=== PATIENT | female | born 1955 | race Caucasian/White ===

== ENCOUNTER 2023-07-20 08:02 | Day surgery (SDC) | payer OTHER ==
[2023-07-19 11:16] LABS: Absolute Basophils 0.1 K/uL (0-0.5); Absolute Eosinophils 0.3 K/uL (0-0.5); Absolute Lymphocytes (CBC) 3.4 K/uL (0.7-4.9); Absolute Monocytes 0.6 K/uL (0.1-1.3); Absolute Neutrophil 2.8 K/uL (1.8-8.0); Basophils % 1.3 % (0-1.3); Eosinophils % 4.8 % (0-4.4); Hematocrit 42.7 % (36.0-45.0); Lymphocytes % 46.6 % (15.3-44.8); MCH 28.3 pg (27.0-35.0); MCHC 32.8 g/dL (32.0-36.0); MCV 86.3 fL (80-100); MPV 9.2 fL (7.6-11.3); Monocytes % 8.6 % (3.3-12.3); Neutrophils % 38.7 % (41.7-73.7); Platelets 265 thou/uL (152-406); RBC Red Blood Cell Count 4.95 M/uL (3.86-4.86)
--- NOTE | 2023-07-19 11:16 | RAD REPORT ---
EXAM DESCRIPTION: RAD - Chest Pa And Lat (2 Views) - 07/19/2023 11:03 am CLINICAL HISTORY: pre op for surgery Chest pain. COMPARISON: No comparisons FINDINGS: The lungs are clear. The heart is moderately enlarged. No displaced fractures.
[2023-07-19 11:26] LABS: Anion Gap 7.4 mEq/L (5.0-15.0); Potassium 4.4 mEq/L (3.5-5.1)
[2023-07-19 11:27] LABS: PT Prothrombin Time 10.1 SECONDS (9.5-12.5); PTT, Activated Partial Thromb 29.9 SECONDS (24.3-36.9); Protime INR 0.92
--- NOTE | 2023-07-19 13:59 | EKG ---
Test Date: 2023-07-19 Test Time: 11:03:00 [employer] Supervisor: GRETEL MEASUREMENT RESULTS: Intervals: Rate: 64 WV: 172 QRSD: 78 QT: 416 QTc: 429 Seltzer: P: 44 WV: 172 QRS: 27 T: 27 INTERPRETIVE STATEMENTS: Normal sinus rhythm Normal ECG No previous ECG available for comparison Electronically Signed On 07-19-23 13:59:18 CDT by Frankie Bahena
[2023-07-20] MEDS: NA CHLORIDE 0.9% 1,000 ML ONE (08:20)
[2023-07-20] MEDS ORDERED: propofoL 200 MG/20 ML VIAL IV ONE (09:22)
[2023-07-20] MEDS ORDERED: LIDOCAINE 1% MPF 5 ML VIAL ONE (09:22)
[2023-07-20] MEDS ORDERED: MIDAZOLAM HCL 2 MG/2 ML INJ ONE (09:23)
[2023-07-20] MEDS ORDERED: FENTANYL CITR 100 MCG/2 ML ONE (09:23)
[2023-07-20] MEDS: CEFAZOLIN SODIUM 1 GM/VIAL ONE (09:56)
[2023-07-20] MEDS ORDERED: ONDANSETRON 4 MG/2 ML VIAL ONE (10:09)
[2023-07-20] MEDS: BUPIVACAINE 0.25% PF 10 ML VIAL ONE (10:16)
--- NOTE | 2023-07-20 10:39 | P.BOP ---
Preoperative diagnosis: right ring finger trigger digit Postoperative diagnosis: same Primary procedure: right ring finger A1 bobby release Citrus Picker: NONE,NONE Estimated blood loss: 1 cc Specimen: none Findings: see dictation Anesthesia: General Implants: none Fluids & blood products: per anesthesia record Transferred to: Recovery Room Condition: Good
--- NOTE | 2023-07-20 10:41 | P.OP ---
Preoperative diagnosis: Right ring finger trigger digit Postoperative diagnosis: Same Primary procedure: right ring finger A1 bobby release Anesthesia: General Estimated blood loss: 1 cc Specimen: None Findings: see dictation Operative Technique: Reason for Surgery: Mily is a 68-year-old female presented to my clinic with signs and symptoms consistent with a right ring finger trigger digit. Patient failed conservative treatment measures in the past and had significant pain that interferes with her activities of daily living. I discussed with the patient at length risks and benefits associated with the procedure. She expressed understanding and elected proceed with operative treatment. Description of Procedure: After informed consent was obtained the patient was identified in the preoperative holding area. The right upper extremity was marked patient. Patient then brought back to the operating room transferred the operative table in supine fashion and placed under anesthesia. The right upper extremity was exsanguinated and the tourniquet was inflated to 250 mmHg. Next, attention was taken to the ring finger. A 1-1/2 cm longitudinal incision was made over the A1 bobby. Blunt dissection was taken down to the A1 bobby using Ragnell retractors. The A1 bobby was released in line with the incision with a 15 blade. The tendon was then brought out through the incision with full excursion without triggering noted. The wound was then irrigated thoroughly with normal saline and skin approximated with 5-0 Prolene. Sterile dressings were applied. Tourniquet was let down and patient was taken to PACU in stable condition. Postoperative plan: Patient will remain nonweightbearing of her right upper extremity. She will follow-up in clinic in 10 days for wound check and suture removal. Complications: None Implants: None Fluids & blood products: Per anesthesia record Transferred to: Recovery Room Condition: Good
[2023-07-20] MEDS: TRAMADOL HCL 50 MG TAB ONE (11:36)
[2023-07-20 14:56] VITALS: BP 131/70; TEMP 97.6; O2SAT 96
== END 2023-07-20 12:28 | disposition home or self-care (01) ==
LOC: OR 08:02
PROVIDERS: ATTEND Orthopaedic Surgery Sports Medicine
PROC: 0LN70ZZ Release Right Hand Tendon, Open Approach (ICD-10-PCS; principal; 2023-07-20 09:30)
DX: M65.341 Trigger finger, right ring finger (principal); E11.9 Type 2 diabetes mellitus without complications; E78.00 Pure hypercholesterolemia, unspecified
CPT/HCPCS: 93005; 85025; 80048; 36415; 85610; 82947; 85730; 71046; 26055; J2704; J2001; J2250; J3010; J2405; J7030; J0690

== ENCOUNTER 2023-09-26 06:00 | Day surgery (SDC) | payer OTHER ==
[2023-09-26] MEDS: NA CHLORIDE 0.9% 1,000 ML ONE (06:41)
[2023-09-26] MEDS ORDERED: LIDOCAINE 1% MPF 30 ML VIAL ONE (06:53)
[2023-09-26] MEDS ORDERED: FENTANYL CITR 100 MCG/2 ML ONE (06:57)
[2023-09-26] MEDS ORDERED: KETOROLAC 30 MG/ML INJ ONE (06:57)
[2023-09-26] MEDS ORDERED: propofoL 200 MG/20 ML VIAL IV ONE (06:57)
[2023-09-26] MEDS ORDERED: LIDOCAINE 1% MPF 5 ML VIAL ONE (06:57)
[2023-09-26] MEDS ORDERED: ONDANSETRON 4 MG/2 ML VIAL ONE (06:57)
[2023-09-26] MEDS ORDERED: MIDAZOLAM HCL 2 MG/2 ML INJ ONE (06:57)
[2023-09-26] MEDS ORDERED: BUPIVACAINE 0.25% PF 30 ML VIAL ONE (07:05)
[2023-09-26] MEDS: CEFAZOLIN SODIUM 1 GM/VIAL ONE (08:00)
[2023-09-26] MEDS ORDERED: CEFAZOLIN SODIUM 1 GM/VIAL ONE (08:02)
--- NOTE | 2023-09-26 10:42 | RAD REPORT ---
EXAM DESCRIPTION: RAD - Fluoroscopy <1 Hour - 09/26/2023 9:45 am CLINICAL HISTORY: RT FOOT BUNIONECTOMY/2ND DIGIT HAMMER TOE COMPARISON: None available. FINDINGS: Three Images were sent to PACS, documenting fluoroscopy use during right foot bunionectomy and hammertoe correction procedure. No radiologist was available for the procedure, nor will any aliyah ge interpretation he provided. Please refer to the procedural report for additional details. Fluoroscopy time: 0.1 Minutes. IMPRESSION: Documentation of fluoroscopy utilization as above.
[2023-09-26 11:22] VITALS: BP 147/76; TEMP 97; O2SAT 100
== END 2023-09-26 11:05 | disposition home or self-care (01) ==
LOC: OR 06:00
PROVIDERS: ATTEND Podiatrist Foot & Ankle Surgery
PROC: 0QSQ04Z Reposition Right Toe Phalanx with Internal Fixation Device, Open Approach (ICD-10-PCS; 2023-09-26)
PROC: 0QSN04Z Reposition Right Metatarsal with Internal Fixation Device, Open Approach (ICD-10-PCS; 2023-09-26)
PROC: 0QSQ04Z Reposition Right Toe Phalanx with Internal Fixation Device, Open Approach (ICD-10-PCS; 2023-09-26)
PROC: 0SGP0JZ Fusion of Right Toe Phalangeal Joint with Synthetic Substitute, Open Approach (ICD-10-PCS; 2023-09-26)
PROC: 0SGP04Z Fusion of Right Toe Phalangeal Joint with Internal Fixation Device, Open Approach (ICD-10-PCS; principal; 2023-09-26 07:30)
DX: M20.11 Hallux valgus (acquired), right foot (principal); M20.41 Other hammer toe(s) (acquired), right foot; M62.471 Contracture of muscle, right ankle and foot
CPT/HCPCS: 28285 ×2; 82947 ×2; 88300; 28299; J2704; J2001; J2250; J3010; J2405; J7030; J0690 ×2; 76000